=== PATIENT | male | born 1980 | race Asian ===

== ENCOUNTER → 2024-05-12 12:20 | Outpatient (REF) | payer BC, SELFPAY | LOC: HWRAD 12:20 | PROVIDERS: ATTENDING PHYSICIAN Student in an Organized Health Care Education/Training Program | DX: M54.50 Low back pain, unspecified (principal) | CPT/HCPCS: 72110 ==

== ENCOUNTER 2025-10-15 06:21 | Day surgery (SDC) | payer BC, SELFPAY | END 2025-10-15 09:18 | disposition home or self-care (01) | LOC: GI 06:21 | PROVIDERS: ATTENDING PHYSICIAN Internal Medicine Gastroenterology | DX: Z12.11 Encounter for screening for malignant neoplasm of colon (principal); K50.10 Crohn's disease of large intestine without complications; K63.89 Other specified diseases of intestine; L80 Vitiligo | CPT/HCPCS: 45380; 88305 ==